=== PATIENT | female | born 1965 | race Caucasian/White ===

== ENCOUNTER → 2016-07-10 | Outpatient (CLI) | payer BC ==
[~2016-07-10] MED LIST: OPTIRAY 320 IV PRN
--- NOTE | 2016-07-10 14:39 | DIAGNOSTIC IMAGING REPORT ---
CT SCAN OF THE ABDOMEN AND PELVIS WITH IV CONTRAST CLINICAL HISTORY: Endometrial mass. Left ovarian cyst. Abdominal cyst. COMPARISON STUDY: Abdominal CT dated 07/02/2015 and 06/29/2014. TECHNIQUE: Following the IV administration of 119 cc of Optiray 320, CT scan of the abdomen and pelvis is performed from the lung bases to the proximal femora. Images are reviewed in the axial, sagittal, and coronal planes. IV contrast was administered without complication. Automated dose control exposure was utilized. CT DOSE: 818.36 mGycm FINDINGS: Lung bases: The heart is normal in size and without pericardial effusion. The lung bases are clear. Liver: The contrast-enhanced liver is normal in size, contour, and attenuation. There is no intrahepatic biliary ductal dilatation. The hepatic veins and portal veins are patent. Focal fatty infiltration is noted adjacent to the falciform ligament. Gallbladder: Surgically absent noting clips in the gallbladder fossa. Spleen: Normal in size and attenuation. Pancreas: There is significant fatty atrophy of the pancreas. Adrenal glands: Unremarkable. Kidneys: The contrast enhanced kidneys are normal in size and without hydronephrosis. The kidneys enhance symmetrically. A 2.9 cm cyst is present in the right upper pole and a 1.3 cm cyst is present in the left lower pole. Additional subcentimeter cortical hypodensities also likely represent cysts but are too small for definitive characterization. Abdominal vasculature: The abdominal aorta is normal in course and caliber. Bowel: The small bowel and colon are normal in course and caliber. There is mild colonic diverticulosis without CT evidence of acute diverticulitis. The appendix is well-visualized and normal. Peritoneum: There is no intraperitoneal free air or abdominal ascites. There is unchanged appearance of a 7 x 5.5 by x 4.0 cm lobulated simple cystic structure along the medial border of the inferior vena cava below the diaphragm. This is best seen on axial image #89. There is no associated soft tissue component or enhancement. There is a small fat-containing umbilical hernia. Lymphadenopathy: None. Pelvic viscera: There is a 3.4 cm enhancing myometrial lesion suspected on image #373. The uterus is otherwise normal as imaged. The bladder is unremarkable. A minimally complex 4 cm cystic lesion is noted in the left ovary on image #336. Additional bilateral ovarian follicles are observed. Skeletal structures: No lytic or blastic lesions are seen. IMPRESSION: 1. There are no acute infectious or inflammatory findings in the abdomen or pelvis. 2. A lobulated simple cystic structure along the medial border of the inferior vena cava below the diaphragm is unchanged from prior studies dating back to 2015. This likely represents a lymphocele or duplication cyst and is of doubtful significance. 3. There is a 3.4 cm enhancing myometrial lesion suggested. Although pathologically indeterminant this likely represents a uterine fibroid. Correlation with a pelvic ultrasound is recommended. 4. No significant change in the appearance of a 4.0 cm minimally complex cystic lesion in the left ovary. Although this likely represents a complex cyst, this should also be assessed with a pelvic ultrasound. 5. Mild colonic diverticulosis without CT evidence of acute diverticulitis. 6. Additional findings as above. Electronically signed by: Andrea Patricia M.D. 07/10/2016 2:38 PM Dictated Date/Time: 07/10/2016 2:29 PM
== END | disposition home or self-care (01) ==
LOC: C.CTS 14:04
PROVIDERS: ATTEND Internal Medicine
DX: N83.202 Unspecified ovarian cyst, left side (principal); N94.89 Other specified conditions associated with female genital organs and menstrual cycle; R93.5 Abnormal findings on diagnostic imaging of other abdominal regions, including retroperitoneum

== ENCOUNTER → 2016-07-16 | Outpatient (CLI) | payer BC | END | disposition home or self-care (01) | LOC: C.PAPS 11:20 | PROVIDERS: ATTEND Obstetrics & Gynecology | DX: Z01.419 Encounter for gynecological examination (general) (routine) without abnormal findings (principal) ==

== ENCOUNTER → 2016-07-22 | Outpatient (CLI) | payer BC ==
--- NOTE | 2016-07-22 16:16 | MAMMOGRAPHY REPORT ---
BILATERAL DIGITAL DIAGNOSTIC MAMMOGRAM TOMOSYNTHESIS WITH CAD AND TARGETED BILATERAL ULTRASOUND: 2016 CLINICAL HISTORY: 50-year-old woman presents for bilateral screening mammography and also palpable juan antonio mps in the upper outer quadrant of the left breast in the area of prior cyst aspirations. TECHNIQUE: Bilateral breast tomosynthesis in addition to standard 2D mammography was performed. Curre nt study was also evaluated with a Computer Aided Detection (CAD) system. COMPARISON: Comparison is made to exams dated: 07/25/2015 aspiration, 06/27/2015 aspiration, 06/27/2015 ultrasound, 06/27/2015 mammogram, 07/21/2014 aspiration, and 07/13/2014 ultrasound - [facility]. BREAST COMPOSITION: The tissue of both breasts is heterogeneously dense, which may obscure small mas ses. FINDINGS: A triangle skin palpable marker overlies the 1:00 middle one third of the left breast, willi ting the palpable lumps pointed out by the patient. There are multiple bilateral circumscribed neelima s scattered in the breasts. The majority of the masses in the left breast are decreased in size comp ared to last years exam. Some of the masses in the lateral right breast have increased in size. All have circumscribed borders which are best visualized on the corresponding to most of this is images. There are bilateral microcalcifications most numerous in the anterior aspect of the breasts, stable on prior exams dating back to at least 2007. There is a slightly more lobulated mass in the 6:00 ri ght breast (CC tomosynthesis slice 13, MLO tomosynthesis slice 18), that measures 13 x 9 x 9 mm, for which additional sonographic evaluation was performed in the right breast. No focal area of architec tural distortion, irregular or spiculated mass or new suspicious microcalcifications are seen bilater ally. Targeted ultrasound was performed in the 6:00 right breast and upper outer quadrant of the left breas t. In the 6:00 right breast, 17 m from the nipple, there is a small cyst cluster measuring 8.7 x 7.0 x 8.9 mm in conglomerate. This correlates well with the lobulated mammographic mass and is benign. Additional ultrasound performed in the areas of palpable concern from the 11:30 through 3:00 axes of the left breast demonstrate multiple cysts. The largest are seen in the 11:30 left breast, 1 cm fro m the nipple, measuring 2.2 and 2.0 cm in maximum dimension. Another cyst with a few internal nonvas cular septations is seen in the 1:00 left breast, 2 cm from the nipple, measuring 7.5 x 10.3 x 14.4 m m. A cyst with single thin internal nonvascular septation is seen in the 3:00 periareolar left breas t measuring 16.2 x 9.3 x 14.6 mm. No suspicious solid mass is identified. IMPRESSION: ACR BI-RADS CATEGORY 2: BENIGN, TARGETED ULTRASOUND ACR BI-RADS CATEGORY 2: BENIGN There are fluctuating circumscribed masses in both breasts most compatible with benign fibrocystic ch anges. The palpable masses in the left breast are in the area of prior palpable lumps which were pre viously aspirated and yielded benign cysts. Therefore, as the patient is not severely symptomatic to day, would simply recommend follow-up in 1 year for for next annual exam as opposed aspirating any of the multiple cysts as seen on ultrasound. These results and recommendations were discussed with the patient at the time of the exam. Approximately 10% of breast cancers are not detected with mammography. A negative mammographic report should not delay biopsy if a clinically suggestive mass is present. Amelia Turpin M.D. ay/:07/22/2016 13:36:32 Dice Person: Kyung GOLDSMITH)([place]), [facility] letter sent: Normal 1/2 BI-RADS Code: ACR BI-RADS Category 2: Benign Ultrasound BI-RADS: ACR BI-RADS Category 2: Benign
== END | disposition home or self-care (01) ==
LOC: C.MAMM 08:55
PROVIDERS: ATTEND Obstetrics & Gynecology
DX: Z12.31 Encounter for screening mammogram for malignant neoplasm of breast (principal); N63 Unspecified lump in breast

== ENCOUNTER → 2016-08-07 | Outpatient (CLI) | payer BC ==
[2016-08-07 12:15] LABS: HEMATOCRIT 40.3 % (37-47); MEAN CELL VOLUME 87.8 fL (80-100); MEAN CORPUSCULAR HEMOGLOBIN 29.8 pg (25-34); MEAN PLATELET VOLUME 10.7 fL (7.4-10.4); PLATELET COUNT 332 K/uL (130-400); RED BLOOD COUNT 4.59 M/uL (4.2-5.4); WHITE BLOOD COUNT 9.37 K/uL (4.8-10.8)
[2016-08-07 12:59] LABS: ALT/SGPT 20 U/L (12-78); BLOOD UREA NITROGEN 15 mg/dl (7-18); BUN/CREATININE RATIO 17.6 (10-20); CALCIUM 9.5 mg/dl (8.5-10.1); CARBON DIOXIDE 26 mmol/L (21-32); CHLORIDE 103 mmol/L (98-107); CHOLESTEROL 224 mg/dl (0-200); CREATININE 0.84 mg/dl (0.60-1.20); GLUCOSE 83 mg/dl (70-99); POTASSIUM 3.4 mmol/L (3.5-5.1); SODIUM 139 mmol/L (136-145); TRIGLYCERIDES 110 mg/dl (0-150); VERY LOW DENSITY LIPOPROT CALC 22 mg/dl
[2016-08-07 13:09] LABS: ALB/GLOB RATIO 0.9 (0.9-2); ALKALINE PHOSPHATASE 68 U/L (45-117); AST/SGOT 14 U/L (15-37); CHOLESTEROL/HDL RATIO 2.9; HDL CHOLESTEROL 78 mg/dl; LDL CHOLESTEROL CALCULATED 124 mg/dl
== END | disposition home or self-care (01) ==
LOC: C.LABBFT 09:00
PROVIDERS: ATTEND Internal Medicine
DX: Z13.29 Encounter for screening for other suspected endocrine disorder (principal); Z13.220 Encounter for screening for lipoid disorders

== ENCOUNTER → 2017-07-07 | Outpatient (CLI) | payer OTHER | END | disposition home or self-care (01) | LOC: C.PAPS 13:46 | PROVIDERS: ATTEND Obstetrics & Gynecology | DX: Z12.4 Encounter for screening for malignant neoplasm of cervix (principal); Z11.51 Encounter for screening for human papillomavirus (HPV) ==